=== PATIENT | female | born 1965 | race Caucasian/White ===

== ENCOUNTER → 2017-07-26 | Day surgery (SDC) | payer OTHER, MEDICARE ==
--- NOTE | 2017-07-24 19:55 | History & Physical Pre-Op ---
General Information and HPI History of Present Illness: Roberta is a 51-year-old female with recurrent and painful plantar fasciitis to both the left and right heels. The patient has undergone an extended course conservative care, including shoe gear and activity modification, rest, immobilization and courses of NSAIDs. None of this is yielded him any significant relief. The patient presents today for preoperative surgical consultation. Allergies/Medications Allergies: Coded Allergies: cyclobenzaprine (From FLEXERIL) (RASH 07/22/17) shellfish derived (RASH 07/22/17) tramadol (NAUSEA 07/22/17) Uncoded Allergies: STARCHED LINEN (RASH 07/22/17) Home Med list Acetaminophen 500 MG TABLET 2 TAB PO PRN PAIN (Reported) Albuterol Sulfate 2.5 MG/3 ML (0.083 %) VIAL.NEB 1 Vial INH/CAREY PRN ASTHMA ( Reported) Aripiprazole (Abilify) 10 MG TABLET 1 TAB PO QAM MENTAL HEALTH (Reported) Aripiprazole (Abilify) 20 MG TABLET 1 TAB PO QHS MENTAL HEALTH (Reported) Canagliflozin (Invokana) 100 MG TABLET 1 TAB PO DAILY DM (Reported) Cholecalciferol (Vitamin D3) (Vitamin D) 5,000 UNIT TABLET 1 TAB PO Q2W SUPPLEMENT (Reported) Diclofenac Sodium (Voltaren) 1 % GEL..GRAM. 1 AZRA TOP DAILY PRN JOINT PAIN ( Reported) apply to affected area(s) Escitalopram Oxalate (Lexapro) 20 MG TABLET 1 TAB PO DAILY MENTAL HEALTH ( Reported) Folic Acid 1 MG TABLET 1 TAB PO DAILY SUPPLEMENT (Reported) Gabapentin 300 MG CAPSULE 2 CAP PO TID NERVE PAIN (Reported) Levetiracetam (Keppra) 500 MG TABLET 1 TAB PO BID SEIZURES (Reported) Levothyroxine Sodium 88 MCG TABLET 1 TAB PO DAILY THYROID (Reported) Naproxen (Naprosyn) 500 MG TABLET 1 TAB PO BID PAIN/INFLAMMATION (Reported) Rosuvastatin Calcium (Crestor) 20 MG TABLET 1 TAB PO QPM CHOLESTEROL ( Reported) Topiramate (Topamax) 100 MG TABLET 1 TAB PO BID MIGRAINES (Reported) Trazodone HCl 50 MG TABLET 1 TAB PO QPM SLEEP/MENTAL HEALTH (Reported) Zolpidem Tartrate (Ambien) 10 MG TABLET 1 TAB PO QHS SLEEP (Reported) Past History Medical History Cardiovascular: hyperlipidemia Respiratory: asthma Endocrine: diabetes, hypothyroidism Surgical History Pertinent Surgical History: cholecystectomy, (Repaired ankle fracture) , hernia repair-incisional Review of Systems Review of Systems: Unremarkable except for that noted in history of present illness Exam & Diagnostic Data Physical Exam: Lungs clear bilaterally. Heart sounds rate and rhythm regular. Lower extremity physical exam demonstrates intact pedal pulses bilaterally. Pulses dorsalis pedis and posterior tibial arteries are palpable bilaterally. Patient without any sensory or facets. Deep tendon reflexes grossly intact. Patient noted assuming pain with palpation of plantar medial aspect of the left and right heels. Negative Tinel sign noted with percussion the posterior tibial nerve. Assessment/Plan Assessment/Plan: Plantar fasciitis left and right heels. A lengthy discussion reviewing both surgical and conservative options was held the patient at bedside and the patient elects to go forward with surgery despite the risks. As Ranked By This Provider Problem List: 1. Plantar fascial fibromatosis Attending MD Review Statement Attending Statement Attending MD Statement: examined this patient
[~2017-07-26] VITALS: Ht 152.4 cm; Wt 90.7 kg
[~2017-07-26] MED LIST: ABILIFY10 M1 PO; ABILIFY20 M1 PO; ACETAMINOPHEN500 M4 PO; ALBUTEROL2.5 MG/3 M INH/SOL; AMBIEN10 M1 PO; CRESTOR20 M2 PO; FOLIC ACID1 M1 PO; GABAPENTIN300 M2 PO; INVOKANA100 M1 PO; KEPPRA500 M1 PO; LEVOTHYROXINE88 MCG PO; LEXAPRO20 M1 PO; NAPROSYN500 M1 PO; TOPAMAX100 M1 PO; TRAZODONE HCL50 M1 PO; VITAMIN D5000 UNIT PO; VOLTAREN100 GM TOP
--- NOTE | 2017-07-26 14:40 | Operative Report ---
Operative/Inv Procedure Report Surgery Date: 07/26/17 Name of Procedure: 1 plantar fasciotomy right 2 plantar fasciotomy left 3 intraoperative administration of ankle block anesthesia Pre-Operative Diagnosis: 1 plantar fasciitis right 2 plantar fasciitis left Post-Operative Diagnosis: The same Estimated Blood Loss: scant Surgeon/Conference Planner: Gladis LANDAVERDE,Luis F Sr DPM Anesthesia: moderate sedation, block Operative/Procedure Note Note: After obtaining informed consent the patient was brought to the operating room and placed on the operating table in the supine position. The patient isn't securely fastened to the operating table utilizing safety belt. After administration of IV sedation, 10 mL of 0.5% Marcaine plain was obtained about the patient's left and right ankles. 2 g of Ancef were delivered within one dose. 2 well-padded ankle tourniquet was patient's bilateral lower extremity's. Left right feet were then scrubbed prepped and draped in usual aseptic manner. The left lower extremity was elevated to examine to limb, which point the ankle tourniquet inflated 250 mmHg. Attention directed to the medial heel, where a linear incision was made the junction the dorsal plantar skin. Dissection was then carried down to the medial margin of the plantar fascia which was released from its origin the medial tubercle calcaneal tuberosity. Deep tissues reports a 4-0 Vicryl skin is reapproximated 4-0 nylon. Incision just Xeroform 4 x 4's Kerlix and Johan wrap. The tourniquet was then deflated. Next, the right lower extremity is elevated to examine to limb, which point the ankle tourniquet inflated 250 mmHg. Attention directed the plantar medial heel, where a linear incision was made the junction the dorsal plantar skin. The dissection was then carried down to the medial margin of the plantar fascia, which was released from its origin the medial tubercle calcaneal tuberosity. The deep tissues reports a 4-0 Vicryl skin is plexiform nylon. Incision was dressed with Xeroform 4 x 4's Kerlix and Johan wrap. The patient noted tolerable to procedure and anesthesia well and the patient was transported from the operating room to recovery with vital signs stable best assess intact all digits bilateral feet.
== END ==
LOC: STS 03:01
DX: M72.2 Plantar fascial fibromatosis (principal); E11.9 Type 2 diabetes mellitus without complications; Z79.84 Long term (current) use of oral hypoglycemic drugs; E03.9 Hypothyroidism, unspecified
CPT/HCPCS: J0690; J1885; J2001; J2250; J3490